=== PATIENT | male | born 1985 | race African-American/Black ===

== ENCOUNTER 2019-10-30 17:11 | Emergency (ER) | payer SELFPAY ==
[~2019-10-30] VITALS: Ht 180.3 cm; Wt 68.2 kg
[2019-10-30 19:00] VITALS: BP 112/75
[2019-10-30] MEDS ORDERED: KETOROLAC 60 MG/2 ML VIAL. IM ONE (19:45)
[2019-10-30] MEDS ORDERED: ORPHENADRINE CITRATE 60 MG/2 ML VIAL. IM ONE (19:45)
--- NOTE | 2019-10-30 19:55 | RAD ---
Three-view lumbar spine dated 10/30/2019. No comparison available. Clinical data indication: Low back pain. FINDINGS: AP, lateral and coned-down views of lumbosacral junction obtained. 5 nonrib-bearing vertebral levels. Vertebral body and disc heights are maintained. Sagittal alignment is anatomic. Posterior elements are intact. No apparent fracture. IMPRESSION: No acute radiographic abnormality. Electronically signed by: Parish Sanchez MD (10/30/2019 7:52 PM) [id number]
[2019-10-30] MEDS ORDERED: NAPR-514 PO (20:17)
[2019-10-30] MEDS ORDERED: CYCL10TA2 PO (20:17)
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
== END 2019-10-30 20:45 | disposition home or self-care (01) ==
LOC: ER 17:11
DX: S16.1XXA Strain of muscle, fascia and tendon at neck level, initial encounter (principal); S39.012A Strain of muscle, fascia and tendon of lower back, initial encounter; J45.909 Unspecified asthma, uncomplicated; F17.200 Nicotine dependence, unspecified, uncomplicated; V49.59XA Passenger injured in collision with other motor vehicles in traffic accident, initial encounter; Y92.488 Other paved roadways as the place of occurrence of the external cause; Y93.89 Activity, other specified; Y99.8 Other external cause status
CPT/HCPCS: 72100; 96372; 99284; J1885; J2360